=== PATIENT | male | born 1945 | race Caucasian/White ===

== ENCOUNTER 2021-01-25 00:47 | Observation (INO) | payer MEDICARE, OTHER ==
[~2021-01-25] VITALS: Ht 177.8 cm; Wt 82.0 kg
[2021-01-25 01:18] LABS: BASO % 1 % (0-3); EOS # 0.3 x10^3/uL (0.0-0.7); EOS % 5 % (0-3); HEMATOCRIT 48.2 % (39.0-53.0); HEMOGLOBIN 16.2 g/dL (13.0-17.5); LYMPH # 0.8 x10^3/uL (1.0-4.8); LYMPH % 14 % (24-48); MEAN CORPUSCULAR HEMOGLOBIN 31 pg (25-35); MEAN CORPUSCULAR HGB CONC 34 g/dL (31-37); MEAN CORPUSCULAR VOLUME 94 fL (79-100); MONO # 0.7 x10^3/uL (0.0-1.1); MONO % 11 % (0-9); NEUT % 69 % (31-73); PLATELET COUNT 139 x10^3/uL (140-400); RED BLOOD COUNT 5.14 x10^6/uL (4.30-5.70); RED CELL DISTRIBUTION WIDTH 14.1 % (11.5-14.5); WHITE BLOOD COUNT 5.8 x10^3/uL (4.0-11.0)
--- NOTE | 2021-01-25 01:18 | PHYS DOC ---
Past Medical History Past Medical History: CVA, High Cholesterol, Hypertension General Adult EDM: Chief Complaint: NEURO SYMPTOMS/DEFICITS HPI: HPI: Patient is a 75 year old male with history of HTN, HLD, recent stroke treated with TPA on 01/19 who presents with recurrent right upper extremity symptoms. On 01/19 was found to have a stroke with symptoms of slurred speech, right arm, right leg numbness and weakness. He received TPA. His symptoms improved vastly after receiving TPA. He was at his neurologic baseline at discharge. His medications were updated and he is now on aspirin and Plavix. Tonight at approximately midnight began having numbness on his right upper extremity, and a slight sensation of weakness in his right arm. There was no speech difficulty or facial droop today. He feels that his symptoms are improving since onset. Denies severe headache. No blood thinners. No known hx of afib/flutter Review of Systems: Review of Systems: Constitutional: Denies fever or chills. [] Eyes: Denies change in visual acuity. [] HENT: Denies nasal congestion or sore throat. [] Respiratory: Denies cough or shortness of breath. [] Cardiovascular: Denies chest pain or edema. [] GI: Denies abdominal pain, nausea, vomiting, bloody stools or diarrhea. [] : Denies dysuria. [] Musculoskeletal: Denies back pain or joint pain. [] Integument: Denies rash. [] Neurologic: Reports right upper extremity weakness and sensory change. Endocrine: Denies polyuria or polydipsia. [] Lymphatic: Denies swollen glands. [] Psychiatric: Denies depression or anxiety. [] Heart Score: C/O Chest Pain: No Current Medications: Current Medications Medications (Trade) Dose Ordered Sig/All Start Time Stop Time Status Last Admin Dose Admin Lorazepam (Ativan Inj) 0.5 mg 1X ONCE 01/25/21 01:15 01/25/21 01:16 UNV Allergies: Allergies: Allergies Coded Allergies Type Severity Reaction Last Updated Verified No Known Drug Allergies 01/25/21 No Physical Exam: PE: Constitutional: Well developed, well nourished, no acute distress, non-toxic appearance. [] HENT: Normocephalic, atraumatic, bilateral external ears normal, oropharynx moist, no oral exudates, nose normal. [] Eyes: PERRLA, EOMI, conjunctiva normal, no discharge. [] Neck: Normal range of motion, no tenderness, supple, no stridor. [] Cardiovascular:Heart rate regular rhythm, no murmur [] Lungs & Thorax: Bilateral breath sounds clear to auscultation [] Abdomen: Bowel sounds normal, soft, no tenderness, no masses, no pulsatile masses. [] Skin: Warm, dry, no erythema, no rash. [] Back: No tenderness, no CVA tenderness. [] Extremities: No tenderness, no cyanosis, no clubbing, ROM intact, no edema. [] Neurologic: Alert, keenly responsive Oriented to person, place, time. Knows month and age. EOMI. Visual ac intact. Face symmetric. Follow simple commands. Blinks eyes, closes hands and face. No upper or lower extremity drift. Slight sensation change in the right upper extremity when compared to the left, but consents being touched in all extremities. No ataxia. No dysarthria or aphasia. No extinction or neglect. NIH =1(sensory change) Psychologic: Affect normal, judgement normal, mood normal. [] Current Patient Data: Labs: Laboratory Tests Test 01/25/21 01:01 Glucose (Fingerstick) 98 mg/dL (70-99) EKG: EKG: Sinus rhythm. Rate 69. Computer reads as atrial flutter, but review of lead III shows obvious P waves without sawtooth pattern. [] Radiology/Procedures: Radiology/Procedures: [] Impression: [facility] [address] [place] [address] IMAGING REPORT Signed PATIENT: TOSHIA TORRES ACCOUNT: [id number] : 1945 LOCATION: ER AGE: 75 SEX: M EXAM STATUS: PRE ER ORD. PHYSICIAN: JOSHUA BOWLES MD REASON: right sided weakness PROCEDURE: CT CODE STROKE HEAD WO INDICATION: Reason: right sided weakness / Spl. Instructions: / History: COMPARISON: None. TECHNIQUE: Axial CT images obtained through the head without intravenous contrast. One or more of the following individualized dose reduction techniques were utilized for this examination: 1. Automated exposure control; 2. Adjustment of the mA and/or kV according to patient size; 3. Use of iterative reconstruction technique. FINDINGS: No intracranial hemorrhage. No significant midline shift. Ventricles and sulci are globally prominent. Scattered foci of low attenuation within the white matter. Calcific atherosclerosis. IMPRESSION: * No acute intracranial hemorrhage. * Scattered regions of low attenuation within the white matter. Non-specific in nature but a common finding and frequently secondary to small vessel ischemic disease. If there is concern for acute causes clinically MRI could better assess whether this is chronic or if there is an acute component. Report called to the ER at 1:20 AM on date of exam. Electronically signed by: Saray Fountain MD (01/25/2021 1:21 AM) [id number] DICTATED and SIGNED BY: SARAY FOUNTAIN MD DATE: 01/25/21 [id number] [facility] [address] [place] [address] IMAGING REPORT Signed PATIENT: TOSHIA TORRES ACCOUNT: [id number] : 1945 LOCATION: ER AGE: 75 SEX: M EXAM STATUS: REG ER ORD. PHYSICIAN: JOSHUA BOWLES MD REASON: right sided weakness;OMNI 300, 75ML PROCEDURE: CT ANGIOGRAPHY HEAD AND NECK INDICATION: Reason: right sided weakness;OMNI 300, 75ML / Spl. Instructions: / History: Recent stroke with similar symptoms. COMPARISON: CT head from same day TECHNIQUE: Axial CT images obtained through the head and neck arterial vasculature with intravenous contrast. 3D images were processed per protocol. Estimates of carotid stenosis based on criteria that correlates with NASCET. One or more of the following individualized dose reduction techniques were utilized for this examination: 1. Automated exposure control; 2. Adjustment of the mA and/or kV according to patient size; 3. Use of iterative reconstruction technique. FINDINGS: Head and Neck Angio: Right vertebral artery is small in caliber. Focus of plaque at the distal left vertebral artery with approximately 70 percent stenosis. Right vertebral artery tapers to a very small size distally. Multifocal plaque within. There is suspected multifocal regions of narrowing within the right vertebral artery. This includes at the origin where there is a focus of hard and soft plaque. Large focus of plaque at the right carotid bulb and proximal right internal carotid artery with approximately 70 percent stenosis at the right bulb region. There is some narrowing extending into the right internal carotid artery appears patent. Calcific atherosclerosis at bilateral carotid siphon. Multifocal plaque within the left internal carotid artery. Plaque at left carotid bulb less severe than on the right. There is some narrowing at the origin left external carotid artery by approximately 50 percent. Suspected high-grade approximately 80 percent stenosis just distal to the origin of the left posterior cerebral artery. Right A1 is hypoplastic. Bilateral vertebral arteries are patent. Bilateral common and internal carotid arteries are patent. Proximal external carotid arteries are patent. Basilar artery is patent. Bilateral proximal MCA, AIME and INTEGRATION DIRECTOR is patent. More peripheral vessels are not well evaluated on CT angiography secondary to sm all size. degenerative changes the spine with multilevel central canal and neural foraminal stenosis. There are some surgical clips at the right side of the neck. IMPRESSION: * Multifocal plaque and stenosis throughout the vertebral and carotid arteries without occlusion within the neck. * Multifocal plaque and stenosis throughout the cerebral arterial vasculature without occlusion of the proximal middle, anterior or posterior cerebral arteries proximally. The more peripheral vessels are not well evaluated secondary to small size as well as multifocal plaque and MRI could better assess for a more peripheral region of ischemia. This includes a suspected high-grade stenosis proximal left posterior cerebral artery. MRI could better assess whether there is any ischemic changes. Electronically signed by: Saray Fountain MD (01/25/2021 1:54 AM) [id number] DICTATED and SIGNED BY: SARAY FOUNTAIN MD DATE: 01/25/21 [id number] Course & Med Decision Making: Course & Med Decision Making Pertinent Labs and Imaging studies reviewed. (See chart for details) Patient is 75-year-old male with history of HTN, HLD, CVA on 01/19 treated with TPA at [facility] who presents with recurrent right upper extremity symptoms of weakness and numbness. On arrival his symptoms are improving, now with just slight sensory changes in the right upper extremity. NIH = 1. Will obtain CT/CTA, coags for stroke work up. Not TPA candidate given recent stroke. 0117 CT head WO shows no hemorrhage. CTA shows multifocal plaques and stenosis throughout with a focal stenosis in the L INTEGRATION DIRECTOR area. On re-evaluation patient states his symptoms are mostly improved. SBP has spontaneously come down from 190s to 160s. Discussed with Dr. Jean of neurology who recommends admission for observation and goal BP < 150/90. [id number] Rogers Disclaimer: Rogers Disclaimer: This electronic medical record was generated, in whole or in part, using a voice recognition dictation system. Departure Departure Impression: Primary Impression: Right arm weakness Disposition: ADMITTED INPATIENT Admitting Physician: THIEN Lau) Condition: IMPROVED JOSHUA BOWLES MD Jan 25, 2021 01:18
--- NOTE | 2021-01-25 01:24 | RAD ---
INDICATION: Reason: right sided weakness / Spl. Instructions: / History: COMPARISON: None. TECHNIQUE: Axial CT images obtained through the head without intravenous contrast. One or more of the following individualized dose reduction techniques were utilized for this examinat ion: 1. Automated exposure control; 2. Adjustment of the mA and/or kV according to patient size; 3 . Use of iterative reconstruction technique. FINDINGS: No intracranial hemorrhage. No significant midline shift. Ventricles and sulci are globally prominent. Scattered foci of low attenuation within the white matter. Calcific atherosclerosis. IMPRESSION: * No acute intracranial hemorrhage. * Scattered regions of low attenuation within the white matter. Non-specific in nature but a common finding and frequently secondary to small vessel ischemic disease. If there is concern for acute cau ses clinically MRI could better assess whether this is chronic or if there is an acute component. Rep ort called to the ER at 1:20 AM on date of exam. Electronically signed by: Brooks Borrego MD (01/25/2021 1:21 AM) [id number]
[2021-01-25 01:25] LABS: PROTHROMBIN TIME PATIENT 12.2 SEC (11.7-14.0)
[2021-01-25 01:28] LABS: CALCIUM 8.8 mg/dL (8.5-10.1); CREATININE 1.3 mg/dL (0.7-1.3); GFR 53.5; POTASSIUM 4.1 mmol/L (3.5-5.1)
[2021-01-25 01:34] LABS: ALBUMIN 3.7 g/dL (3.4-5.0); ALBUMIN/GLOBULIN RATIO 1.1 (1.0-1.7); TOTAL BILIRUBIN 0.7 mg/dL (0.2-1.0); TOTAL PROTEIN 7.2 g/dL (6.4-8.2)
[2021-01-25] MEDS ORDERED: CONTRAST GIVEN. MC PRN (01:45)
--- NOTE | 2021-01-25 01:57 | RAD ---
INDICATION: Reason: right sided weakness;OMNI 300, 75ML / Spl. Instructions: / History: Recent stro ke with similar symptoms. COMPARISON: CT head from same day TECHNIQUE: Axial CT images obtained through the head and neck arterial vasculature with intravenous contrast. 3 D images were processed per protocol. Estimates of carotid stenosis based on criteria that correlates with NASCET. One or more of the following individualized dose reduction techniques were utilized for this examinat ion: 1. Automated exposure control; 2. Adjustment of the mA and/or kV according to patient size; 3 . Use of iterative reconstruction technique. FINDINGS: Head and Neck Angio: Right vertebral artery is small in caliber. Focus of plaque at the distal left vertebral artery with approximately 70 percent stenosis. Right devante tebral artery tapers to a very small size distally. Multifocal plaque within. There is suspected mult ifocal regions of narrowing within the right vertebral artery. This includes at the origin where ther e is a focus of hard and soft plaque. Large focus of plaque at the right carotid bulb and proximal right internal carotid artery with appro ximately 70 percent stenosis at the right bulb region. There is some narrowing extending into the rig ht internal carotid artery appears patent. Calcific atherosclerosis at bilateral carotid siphon. Multifocal plaque within the left internal carr tid artery. Plaque at left carotid bulb less severe than on the right. There is some narrowing at the origin left external carotid artery by approximately 50 percent. Suspected high-grade approximately 80 percent stenosis just distal to the origin of the left posterior cerebral artery. Right A1 is hypoplastic. Bilateral vertebral arteries are patent. Bilateral common and internal carotid arteries are patent. Proximal external carotid arteries are patent. Basilar artery is patent. Bilateral proximal MCA, AIME and SPECIALTY SALES CONSULTANT is patent. More peripheral vessels are not well evaluated on CT angiography secondary to small size. degenerative changes the spine with multilevel central canal and neural foraminal stenosis. There are some surgical clips at the right side of the neck. IMPRESSION: * Multifocal plaque and stenosis throughout the vertebral and carotid arteries without occlusion wit hin the neck. * Multifocal plaque and stenosis throughout the cerebral arterial vasculature without occlusion of t he proximal middle, anterior or posterior cerebral arteries proximally. The more peripheral vessels a re not well evaluated secondary to small size as well as multifocal plaque and MRI could better asses s for a more peripheral region of ischemia. This includes a suspected high-grade stenosis proximal le ft posterior cerebral artery. MRI could better assess whether there is any ischemic changes. Electronically signed by: Brooks Borrego MD (01/25/2021 1:54 AM) [id number]
[2021-01-25] MEDS ORDERED: IOHEXOL 300 MG/ML 100ML VIAL. IV ONE (02:00)
[2021-01-25] MEDS ORDERED: hydrALAZINE 20 MG/ML VIAL. IVP ONE (02:30)
[2021-01-25] MEDS ORDERED: traZODone 50 MG TABLET. PO ONE (04:00)
--- NOTE | 2021-01-25 04:36 | EKG ---
[facility] [address] [place] [address] Test Date: 2021-01-25 Test Time: 00:57:37 Pat Name: TOSHIA TORRES Department: Room: ED HOLD 18 Gender: M Service Mechanic: : 1945 Requested By: JOSHUA BOWLES Order Number: [id number] Reading MD: Corey Ibarra Measurements Intervals [place] Rate: 69 P: WA: QRS: 9 QRSD: 82 T: 41 QT: 402 QTc: 432 Interpretive Statements SINUS RHYTHM Electronically Signed On 01-27-2021 12:54:53 SUPERVISOR UNLOADING by Corey Ibarra
[2021-01-25] MEDS ORDERED: hydrALAZINE 20 MG/ML VIAL. IVP PRN (07:00)
[2021-01-25] MEDS ORDERED: ACETAMINOPHEN 325 MG TABLET. PO PRN ×2 (07:00→09:30)
[2021-01-25] MEDS ORDERED: ONDANSETRON PF 4 MG/2 ML VIAL. IVP PRN ×2 (07:00→09:30)
[2021-01-25] MEDS ORDERED: ELECTROLYTE (NON-ICU) PROTOCOL. MC PRN (09:30)
[2021-01-25] MEDS ORDERED: CLOPIDOGREL BISULFATE 75 MG TABLET PO SCH (09:30)
[2021-01-25] MEDS ORDERED: ASPIRIN 325 MG TABLET PO SCH (09:30)
[2021-01-25] MEDS ORDERED: ZOLPIDEM 5 MG TABLET. PO PRN (09:30)
[2021-01-25] MEDS ORDERED: CALCIUM CARBONATE 500 MG TAB.CHEW PO PRN (09:30)
[2021-01-25] MEDS ORDERED: SENNOSIDES/DOCUSATE 8.6/50MG TABLET. PO SCH (10:00)
[2021-01-25] MEDS ORDERED: HEPARIN for SUB-Q USE 5,000 UNIT/ML VIAL. SQ SCH (10:00)
--- NOTE | 2021-01-25 10:06 | PDOC2 ---
NEUROLOGY CONSULT Date of Service DOS: DATE: 01/25/21 TIME: 09:56 Reason for Consult Reason for Consult: Stroke symptoms Referring Physician Referring Physician: Dr. Elmore Source Source: Caregiver (), Chart review, Patient History of Present Illness History of Present Illness The patient is a 75-year-old right-handed male who developed some right arm numbness and weakness with some symptoms in the leg as well at about 9 PM. He came to the emergency room her blood pressure was elevated. Symptoms have nearly resolved. He was at , admitted on 01/19. With his permission, I rev iewed the records. He came in with right sided weakness and then developed aphasia. Blood pressure was 240 systolic. He was put on a Cardene drip and given alteplase. CT angiogram showed no large vessel occlusion. MRI of the brain was negative. Symptoms resolved quickly, then. There is no other history of stroke. He does not know why his blood pressure would spike, he denies undue stress or noncompliance with his medications. He is on clopidogrel and statin. 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 Pauline Cardona [facility] 11/17/2020 AMB atenoloL (TENORMIN) 25 mg tablet Take one-half tablet by mouth at bedtime daily. Dominguez Hendricks MD 01/22/2021 AMB clopiDOGrel (PLAVIX) 75 mg tablet Take one tablet by mouth daily. Pauline Cardona [facility] 11/17/2020 AMB isosorbide mononitrate ER (IMDUR) 60 mg tablet Take one tablet by mouth every morning. Dominguez Hendricks MD -- AMB L.acid/L.casei/B.bif/B.reilly/FOS (PROBIOTIC BLEND PO) Take 1 tablet by mouth daily. HISTORICAL PROVIDER 11/16/2020 AMB losartan (COZAAR) 100 mg tablet Take one tablet by mouth at bedtime daily. Tony Lopez MD -- AMB MAGNESIUM MALATE (BULK) MISC Take 1 tablet by mouth twice daily. Magnesium SRT (Sustained release magnesium) 125mg of magnesium per tablet Provider, Historical -- AMB melatonin 1 mg tab Take 1 mg by mouth at bedtime daily. Provider, Historical 11/16/2020 AMB montelukast (SINGULAIR) 10 mg tablet Take one tablet by mouth at bedtime daily. Tony Lopez MD 11/09/[address] (PRILOSEC) 20 mg capsule TAKE 1 CAPSULE DAILY BEFOREBREAKFAST Tony Lopez MD 11/16/2020 AMB potassium chloride SR (KLOR-CON M20) 20 mEq tablet TAKE 2 TABLETS DAILY WITH AMEAL AND A FULL GLASS OF WATER Tony Lopez MD 12/30/2020 AMB rosuvastatin (CRESTOR) 20 mg tablet Take one tablet by mouth daily. Dominguez Hendricks MD 12/27/2017 AMB senna/docusate (SENOKOT-S) 8.6/50 mg tablet Take one tablet by mouth twice daily. (Patient taking differently: Take 1 tablet by mouth at bedtime daily.) Teresa Crow APRN-KI 09/17/2020 AMB sodium fluoride (PREVIDENT) 1.1 % gel Apply one g to teeth at bedtime daily. Delmer Onofre MD 05/17/2020 AMB SYNTHROID 88 mcg tablet TAKE 1 TABLET DAILY 30 MINUTES BEFORE BREAKFAST Jono Parra MD 11/17/2020 AMB tamsulosin (FLOMAX) 0.4 mg capsule Take one capsule by mouth daily. Take 30 min after same meal. Do not cut/ crush/ chew. Jah Hammond MD 11/16/2020 AMB traZODone (DESYREL) 50 mg tablet Take one tablet to two tablets by mouth at bedtime as needed for Sleep. Tony Lopez MD Current Medications Lorazepam (Ativan Inj) 2 mg STK-MED ONCE .ROUTE ; Start 01/25/21 at 01:03; Stop 01/25/21 at 01:03; Status DC Lorazepam (Ativan Inj) 0.5 mg 1X ONCE IVP Last administered on 01/25/21at 01:10; Start 01/25/21 at 01:15; Stop 01/25/21 at 01:26; Status DC Iohexol (Omnipaque 300 Mg/ml) 75 ml 1X ONCE IV Last administered on 01/25/21at 01:44; Start 01/25/21 at 02:00; Stop 01/25/21 at 02:01; Status DC Info (CONTRAST GIVEN -- Rx MONITORING) 1 each PRN DAILY PRN MC SEE COMMENTS; Start 01/25/21 at 01:45; Stop 01/27/21 at 01:44 Hydralazine HCl (Apresoline Inj) 10 mg 1X ONCE IVP ; Start 01/25/21 at 02:30; Stop 01/25/21 at 02:31; Status DC Trazodone HCl (Desyrel) 50 mg 1X ONCE PO Last administered on 01/25/21at 03:40; Start 01/25/21 at 04:00; Stop 01/25/21 at 04:01; Status DC Ondansetron HCl (Zofran) 4 mg PRN Q4HRS PRN IVP NAUSEA/VOMITING; Start 01/25/21 at 07:00 Acetaminophen (Tylenol) 650 mg PRN Q6HRS PRN PO MILD PAIN / TEMP > 100.3'F; Start 01/25/21 at 07:00 Hydralazine HCl (Apresoline Inj) 10 mg PRN Q4HRS PRN IVP ELEVATED BP, SEE C OMMENTS; Start 01/25/21 at 07:00 Aspirin (Kimberlee Aspirin) 81 mg DAILYWBKFT PO ; Start 01/25/21 at 09:30 Clopidogrel Bisulfate (Plavix) 75 mg DAILYWBKFT PO ; Start 01/25/21 at 09:30 Ondansetron HCl (Zofran) 4 mg PRN Q6HRS PRN IVP NAUSEA/VOMITING; Start 01/25/21 at 09:30 Calcium Carbonate/ Glycine (Tums) 500 mg PRN Q3HRS PRN PO UPSET STOMACH; Start 01/25/21 at 09:30 Zolpidem Tartrate (Ambien) 5 mg PRN QHS PRN PO INSOMNIA, MAY REPEAT IN 1HR; Start 01/25/21 at 09:30 Info (Non-Icu Electrolyte Protocol) 1 ea PRN DAILY PRN MC SEE COMMENTS; Start 01/25/21 at 09:30 Acetaminophen (Tylenol) 650 mg PRN Q6HRS PRN PO Headaches, Temp > 101.5F; Start 01/25/21 at 09:30 Senna/Docusate Sodium (Senna Plus) 1 tab BID PO ; Start 01/25/21 at 10:00 Heparin Sodium (Porcine) (Heparin Sodium) 5,000 unit Q8HRS SQ ; Start 01/25/21 at 10:00 Allergies Allergies: Coded Allergies: No Known Drug Allergies (Unverified , 01/25/21) ROS Review of System Negative for fever, chills, weight loss, shortness of breath, chest pain, indigestion, hematochezia, melena, and dysuria. Full 14-point review of systems is negative. Physical Exam Physical Examination General: Well-developed, well-nourished, white male, in no acute distress HEENT: Normocephalic andatraumatic.Temporal arteriespulsatile and nontender. Neck: Supple without bruit, no meningismus Musculoskeletal: Stability:see neurologic. Gait exam:see neurologic. Tone:see neurologic. Strength:see neurologic. Neurological: Mental Status:intact, orientation, memory, attention span/concentration, language, fund of knowledge normal. Cranial Nerves:Pupils equal and reactive to light, extraocular movements areintact, visual ac are full to confrontation. Facial sensation is normal. There is no facial asymmetry. Vestibulo-ocular reflex is intact. Palate elevates and tongue protrudes in midline. All other cranial related problems are negative except as mentioned before.Reflexes:2+ and symmetric with flexor plantar responses. Motor:5/5 strength with normal tone and bulk. Coordination:Finger-nose finger and he el-to-sepulveda testing are normal. Rapid alternating movements and fine finger movements are intact. Gait:Not tested. Sensory:Says that pinprick is maybe a little decreased on the right side, not consistently. Vitals VITALS Vital Signs Date Time Temp Pulse Resp B/P (MAP) Pulse Ox O2 Delivery O2 Flow Rate FiO2 01/25/21 06:00 54 20 153/70 (97) 96 Room Air 01/25/21 00:54 98.1 98.1 Labs Labs Laboratory Tests Test 01/25/21 00:55 01/25/21 01:01 White Blood Count 5.8 x10^3/uL (4.0-11.0) Red Blood Count 5.14 x10^6/uL (4.30-5.70) Hemoglobin 16.2 g/dL (13.0-17.5) Hematocrit 48.2 % (39.0-53.0) Mean Corpuscular Volume 94 fL (79-100) Mean Corpuscular Hemoglobin 31 pg (25-35) Mean Corpuscular Hemoglobin Concent 34 g/dL (31-37) Red Cell Distribution Width 14.1 % (11.5-14.5) Platelet Count 139 x10^3/uL (140-400) Neutrophils (%) (Auto) 69 % (31-73) Lymphocytes (%) (Auto) 14 % (24-48) Monocytes (%) (Auto) 11 % (0-9) Eosinophils (%) (Auto) 5 % (0-3) Basophils (%) (Auto) 1 % (0-3) Neutrophils # (Auto) 4.0 x10^3/uL (1.8-7.7) Lymphocytes # (Auto) 0.8 x10^3/uL (1.0-4.8) Monocytes # (Auto) 0.7 x10^3/uL (0.0-1.1) Eosinophils # (Auto) 0.3 x10^3/uL (0.0-0.7) Basophils # (Auto) 0.0 x10^3/uL (0.0-0.2) Prothrombin Time 12.2 SEC (11.7-14.0) Prothromb Time International Ratio 0.9 (0.8-1.1) Activated Partial Thromboplast Time 29 SEC (24-38) Sodium Level 135 mmol/L (136-145) Potassium Level 4.1 mmol/L (3.5-5.1) Chloride Level 100 mmol/L (98-107) Carbon Dioxide Level 27 mmol/L (21-32) Anion Gap 8 (6-14) Blood Urea Nitrogen 19 mg/dL (8-26) Creatinine 1.3 mg/dL (0.7-1.3) Estimated GFR (Cockcroft-Gault) 53.5 BUN/Creatinine Ratio 15 (6-20) Glucose Level 95 mg/dL (70-99) Calcium Level 8.8 mg/dL (8.5-10.1) Total Bilirubin 0.7 mg/dL (0.2-1.0) Aspartate Amino Transf (AST/SGOT) 44 U/L (15-37) Alanine Aminotransferase (ALT/SGPT) 44 U/L (16-63) Alkaline Phosphatase 128 U/L (46-116) Troponin I High Sensitivity 10 ng/L (4-75) Total Protein 7.2 g/dL (6.4-8.2) Albumin 3.7 g/dL (3.4-5.0) Albumin/Globulin Ratio 1.1 (1.0-1.7) Glucose (Fingerstick) 98 mg/dL (70-99) Laboratory Tests Test 01/25/21 00:55 01/25/21 01:01 White Blood Count 5.8 x10^3/uL (4.0-11.0) Red Blood Count 5.14 x10^6/uL (4.30-5.70) Hemoglobin 16.2 g/dL (13.0-17.5) Hematocrit 48.2 % (39.0-53.0) Mean Corpuscular Volume 94 fL (79-100) Mean Corpuscular Hemoglobin 31 pg (25-35) Mean Corpuscular Hemoglobin Concent 34 g/dL (31-37) Red Cell Distribution Width 14.1 % (11.5-14.5) Platelet Count 139 x10^3/uL (140-400) Neutrophils (%) (Auto) 69 % (31-73) Lymphocytes (%) (Auto) 14 % (24-48) Monocytes (%) (Auto) 11 % (0-9) Eosinophils (%) (Auto) 5 % (0-3) Basophils (%) (Auto) 1 % (0-3) Neutrophils # (Auto) 4.0 x10^3/uL (1.8-7.7) Lymphocytes # (Auto) 0.8 x10^3/uL (1.0-4.8) Monocytes # (Auto) 0.7 x10^3/uL (0.0-1.1) Eosinophils # (Auto) 0.3 x10^3/uL (0.0-0.7) Basophils # (Auto) 0.0 x10^3/uL (0.0-0.2) Prothrombin Time 12.2 SEC (11.7-14.0) Prothromb Time International Ratio 0.9 (0.8-1.1) Activated Partial Thromboplast Time 29 SEC (24-38) Sodium Level 135 mmol/L (136-145) Potassium Level 4.1 mmol/L (3.5-5.1) Chloride Level 100 mmol/L (98-107) Carbon Dioxide Level 27 mmol/L (21-32) Anion Gap 8 (6-14) Blood Urea Nitrogen 19 mg/dL (8-26) Creatinine 1.3 mg/dL (0.7-1.3) Estimated GFR (Cockcroft-Gault) 53.5 BUN/Creatinine Ratio 15 (6-20) Glucose Level 95 mg/dL (70-99) Calcium Level 8.8 mg/dL (8.5-10.1) Total Bilirubin 0.7 mg/dL (0.2-1.0) Aspartate Amino Transf (AST/SGOT) 44 U/L (15-37) Alanine Aminotransferase (ALT/SGPT) 44 U/L (16-63) Alkaline Phosphatase 128 U/L (46-116) Troponin I High Sensitivity 10 ng/L (4-75) Total Protein 7.2 g/dL (6.4-8.2) Albumin 3.7 g/dL (3.4-5.0) Albumin/Globulin Ratio 1.1 (1.0-1.7) Glucose (Fingerstick) 98 mg/dL (70-99) Images Images CT CODE STROKE HEAD WO INDICATION: Reason: right sided weakness / Spl. Instructions: / History: COMPARISON: None. TECHNIQUE: Axial CT images obtained through the head without intravenous contrast. One or more of the following individualized dose reduction techniques were utilized for this examination: 1. Automated exposure control; 2. Adjustment of the mA and/or kV according to patient size; 3. Use of iterative reconstruction technique. FINDINGS: No intracranial hemorrhage. No significant midline shift. Ventricles and sulci are globally prominent. Scattered foci of low attenuation within the white matter. Calcific atherosclerosis. IMPRESSION: * No acute intracranial hemorrhage. * Scattered regions of low attenuation within the white matter. Non-specific in nature but a common finding and frequently secondary to small vessel ischemic disease. If there is concern for acute causes clinically MRI could better assess whether this is chronic or if there is an acute component. CT ANGIOGRAPHY HEAD AND NECK INDICATION: Reason: right sided weakness;OMNI 300, 75ML / Spl. Instructions: / History: Recent stroke with similar symptoms. COMPARISON: CT head from same day TECHNIQUE: Axial CT images obtained through the head and neck arterial vasculature with intravenous contrast. 3D images were processed per protocol. Estimates of carotid stenosis based on criteria that correlates with NASCET. One or more of the following individualized dose reduction techniques were utilized for this examination: 1. Automated exposure control; 2. Adjustment of the mA and/or kV according to patient size; 3. Use of iterative reconstruction technique. FINDINGS: Head and Neck Angio: Right vertebral artery is small in caliber. Focus of plaque at the distal left vertebral artery with approximately 70 percent stenosis. Right vertebral artery tapers to a very small size distally. Multifocal plaque within. There is suspected multifocal regions of narrowing within the right vertebral artery. This includes at the origin where there is a focus of hard and soft plaque. Large focus of plaque at the right carotid bulb and proximal right internal carotid artery with approximately 70 percent stenosis at the right bulb region. There is some narrowing extending into the right internal carotid artery appears patent. Calcific atherosclerosis at bilateral carotid siphon. Multifocal plaque within the left internal carotid artery. Plaque at left carotid bulb less severe than on the right. There is some narrowing at the origin left external carotid artery by approximately 50 percent. Suspected high-grade approximately 80 percent stenosis just distal to the origin of the left posterior cerebral artery. Right A1 is hypoplastic. Bilateral vertebral arteries are patent. Bilateral common and internal carotid arteries are patent. Proximal external carotid arteries are patent. Basilar artery is patent. Bilateral proximal MCA, [employer] is patent. More peripheral vessels are not well evaluated on CT angiography secondary to small size. degenerative changes the spine with multilevel central canal and neural fo raminal stenosis. There are some surgical clips at the right side of the neck. IMPRESSION: * Multifocal plaque and stenosis throughout the vertebral and carotid arteries without occlusion within the neck. * Multifocal plaque and stenosis throughout the cerebral arterial vasculature without occlusion of the proximal middle, anterior or posterior cerebral arteries proximally. The more peripheral vessels are not well evaluated secondary to small size as well as multifocal plaque and MRI could better assess for a more peripheral region of ischemia. This includes a suspected high-grade stenosis proximal left posterior cerebral artery. MRI could better assess whether there is any ischemic changes. Assessment/Plan Assessment/Plan Impression: He has had 2 stroke-like episodes a week apart, both times associated with severe hypertension. He had a negative MRI at . They gave him alteplase. Multifocal plaque and stenosis throughout the vertebral and carotid arteries without occlusion within the neck, multifocal plaque and stenosis throughout the cerebral arterial vasculature without occlusion of the proximal middle, anterior or posterior cerebral arteries proximally. Recommendations: I discussed the case with Dr. Suggs last night and we did not feel the patient was a candidate for alteplase given the rapid improvement of symptoms. I see no need to repeat the work-up Watch him today and see how his blood pressure does, he needs to keep a close eye on his blood pressure Continue clopidogrel and statin (he is on rosuvastatin at home). Discharge as soon as late this afternoon depending on how he does. Fully discussed with the patient and his . Thank you for letting me help with the patient's care. SHAMIR HIRSCH MD Jan 25, 2021 10:06
[2021-01-25 11:00] VITALS: BP 165/98
--- NOTE | 2021-01-25 11:03 | PDOC1 ---
History and Physical Date of Service: DOS: DATE: 01/25/21 TIME: 11:03 Allergies: Allergies: Coded Allergies: No Known Drug Allergies (Unverified , 01/25/21) Current Medications: Current Medications Current Medications Lorazepam (Ativan Inj) 2 mg STK-MED ONCE .ROUTE ; Start 01/25/21 at 01:03; Stop 01/25/21 at 01:03; Status DC Lorazepam (Ativan Inj) 0.5 mg 1X ONCE IVP Last administered on 01/25/21at 01:10; Start 01/25/21 at 01:15; Stop 01/25/21 at 01:26; Status DC Iohexol (Omnipaque 300 Mg/ml) 75 ml 1X ONCE IV Last administered on 01/25/21at 01:44; Start 01/25/21 at 02:00; Stop 01/25/21 at 02:01; Status DC Info (CONTRAST GIVEN -- Rx MONITORING) 1 each PRN DAILY PRN MC SEE COMMENTS; Start 01/25/21 at 01:45; Stop 01/27/21 at 01:44 Hydralazine HCl (Apresoline Inj) 10 mg 1X ONCE IVP ; Start 01/25/21 at 02:30; Stop 01/25/21 at 02:31; Status DC Trazodone HCl (Desyrel) 50 mg 1X ONCE PO Last administered on 01/25/21at 03:40; Start 01/25/21 at 04:00; Stop 01/25/21 at 04:01; Status DC Ondansetron HCl (Zofran) 4 mg PRN Q4HRS PRN IVP NAUSEA/VOMITING; Start 01/25/21 at 07:00 Acetaminophen (Tylenol) 650 mg PRN Q6HRS PRN PO MILD PAIN / TEMP > 100.3'F; Start 01/25/21 at 07:00 Hydralazine HCl (Apresoline Inj) 10 mg PRN Q4HRS PRN IVP ELEVATED BP, SEE CO MMENTS; Start 01/25/21 at 07:00 Aspirin (Kimberlee Aspirin) 81 mg DAILYWBKFT PO ; Start 01/25/21 at 09:30 Clopidogrel Bisulfate (Plavix) 75 mg DAILYWBKFT PO ; Start 01/25/21 at 09:30 Ondansetron HCl (Zofran) 4 mg PRN Q6HRS PRN IVP NAUSEA/VOMITING; Start 01/25/21 at 09:30 Calcium Carbonate/ Glycine (Tums) 500 mg PRN Q3HRS PRN PO UPSET STOMACH; Start 01/25/21 at 09:30 Zolpidem Tartrate (Ambien) 5 mg PRN QHS PRN PO INSOMNIA, MAY REPEAT IN 1HR; Start 01/25/21 at 09:30 Info (Non-Icu Electrolyte Protocol) 1 ea PRN DAILY PRN MC SEE COMMENTS; Start 01/25/21 at 09:30 Acetaminophen (Tylenol) 650 mg PRN Q6HRS PRN PO Headaches, Temp > 101.5F; Start 01/25/21 at 09:30 Senna/Docusate Sodium (Senna Plus) 1 tab BID PO ; Start 01/25/21 at 10:00 Heparin Sodium (Porcine) (Heparin Sodium) 5,000 unit Q8HRS SQ ; Start 01/25/21 at 10:00 ROS: Review of Systems Review of System REVIEW OF SYSTEMS: GENERAL: Denies weakness SKIN: No bruising, hair changes or rashes. EYES: No blurred, double or loss of vision. NOSE AND THROAT: No history of nosebleeds, hoarseness or sore throat. HEART: No history of palpitations, chest pain or shortness of breath on exertion. LUNGS: Denies cough, hemoptysis, wheezing or shortness of breath. GASTROINTESTINAL: Denies changes in appetite, nausea, vomiting, diarrhea or constipation. GENITOURINARY: No history of frequency, urgency, hesitancy or nocturia. NEUROLOGIC: Denies history of numbness, tingling, or tremor. PSYCHIATRIC: No history of panic, anxiety or depression. ENDOCRINE: No history of heat or cold intolerance, polyuria or polydipsia. EXTREMITIES: Denies joint pain, pain on walking or stiffness. Physical Exam: Vital Signs: Vital Signs Date Time Temp Pulse Resp B/P (MAP) Pulse Ox O2 Delivery O2 Flow Rate FiO2 01/25/21 06:00 54 20 153/70 (97) 96 Room Air 01/25/21 00:54 98.1 98.1 Physcial Exam: GEN: No apparent distress. Alert and oriented HEENT: Normal cephalic, atraumatic, external auditory canals are patent EYES: Extraocular muscles are intact, pupil are equally round and reactive to light and accommodation MUSCULOSKELETAL: Well developed , well nourished, good range of motion ENDOCRINE: No thyromegaly was palpated LYMPHATICS: No cervical chain or axillary nodes were noted HEMATOPOIETIC: No bruising NECK: Supple, no JVD, no thyromegaly was noted LUNGS: Clear to auscultation in all lung ac without rhonchi or wheezing HEART: RRR, S!, S2 present. Peripheral pulses intact, no obvious murmurs noted ABDOMEN: Soft, nontender. Positive bowel sounds, no organomegaly, normal bowel sounds EXTREMITIES: Without clubbing, cyanosis, or edema. Pedal pulses intact. Negative Homans sign NEUROLOGIC: Normal speech and tone. A&O x 3, moves all extremities, no obvious focal deficits PSYCHIATRIC: Normal affect, normal mood. Stable SKIN: No ulcerations or rashes, good skin turgor, no jaundice VASCULAR: Good capillary refill, neurovascular bundle appears to be intact Labs: Labs: Laboratory Tests Test 01/25/21 00:55 01/25/21 01:01 White Blood Count 5.8 x10^3/uL (4.0-11.0) Red Blood Count 5.14 x10^6/uL (4.30-5.70) Hemoglobin 16.2 g/dL (13.0-17.5) Hematocrit 48.2 % (39.0-53.0) Mean Corpuscular Volume 94 fL (79-100) Mean Corpuscular Hemoglobin 31 pg (25-35) Mean Corpuscular Hemoglobin Concent 34 g/dL (31-37) Red Cell Distribution Width 14.1 % (11.5-14.5) Platelet Count 139 x10^3/uL (140-400) Neutrophils (%) (Auto) 69 % (31-73) Lymphocytes (%) (Auto) 14 % (24-48) Monocytes (%) (Auto) 11 % (0-9) Eosinophils (%) (Auto) 5 % (0-3) Basophils (%) (Auto) 1 % (0-3) Neutrophils # (Auto) 4.0 x10^3/uL (1.8-7.7) Lymphocytes # (Auto) 0.8 x10^3/uL (1.0-4.8) Monocytes # (Auto) 0.7 x10^3/uL (0.0-1.1) Eosinophils # (Auto) 0.3 x10^3/uL (0.0-0.7) Basophils # (Auto) 0.0 x10^3/uL (0.0-0.2) Prothrombin Time 12.2 SEC (11.7-14.0) Prothromb Time International Ratio 0.9 (0.8-1.1) Activated Partial Thromboplast Time 29 SEC (24-38) Sodium Level 135 mmol/L (136-145) Potassium Level 4.1 mmol/L (3.5-5.1) Chloride Level 100 mmol/L (98-107) Carbon Dioxide Level 27 mmol/L (21-32) Anion Gap 8 (6-14) Blood Urea Nitrogen 19 mg/dL (8-26) Creatinine 1.3 mg/dL (0.7-1.3) Estimated GFR (Cockcroft-Gault) 53.5 BUN/Creatinine Ratio 15 (6-20) Glucose Level 95 mg/dL (70-99) Calcium Level 8.8 mg/dL (8.5-10.1) Total Bilirubin 0.7 mg/dL (0.2-1.0) Aspartate Amino Transf (AST/SGOT) 44 U/L (15-37) Alanine Aminotransferase (ALT/SGPT) 44 U/L (16-63) Alkaline Phosphatase 128 U/L (46-116) Troponin I High Sensitivity 10 ng/L (4-75) Total Protein 7.2 g/dL (6.4-8.2) Albumin 3.7 g/dL (3.4-5.0) Albumin/Globulin Ratio 1.1 (1.0-1.7) Glucose (Fingerstick) 98 mg/dL (70-99) Laboratory Tests Test 01/25/21 00:55 01/25/21 01:01 White Blood Count 5.8 x10^3/uL (4.0-11.0) Red Blood Count 5.14 x10^6/uL (4.30-5.70) Hemoglobin 16.2 g/dL (13.0-17.5) Hematocrit 48.2 % (39.0-53.0) Mean Corpuscular Volume 94 fL (79-100) Mean Corpuscular Hemoglobin 31 pg (25-35) Mean Corpuscular Hemoglobin Concent 34 g/dL (31-37) Red Cell Distribution Width 14.1 % (11.5-14.5) Platelet Count 139 x10^3/uL (140-400) Neutrophils (%) (Auto) 69 % (31-73) Lymphocytes (%) (Auto) 14 % (24-48) Monocytes (%) (Auto) 11 % (0-9) Eosinophils (%) (Auto) 5 % (0-3) Basophils (%) (Auto) 1 % (0-3) Neutrophils # (Auto) 4.0 x10^3/uL (1.8-7.7) Lymphocytes # (Auto) 0.8 x10^3/uL (1.0-4.8) Monocytes # (Auto) 0.7 x10^3/uL (0.0-1.1) Eosinophils # (Auto) 0.3 x10^3/uL (0.0-0.7) Basophils # (Auto) 0.0 x10^3/uL (0.0-0.2) Prothrombin Time 12.2 SEC (11.7-14.0) Prothromb Time International Ratio 0.9 (0.8-1.1) Activated Partial Thromboplast Time 29 SEC (24-38) Sodium Level 135 mmol/L (136-145) Potassium Level 4.1 mmol/L (3.5-5.1) Chloride Level 100 mmol/L (98-107) Carbon Dioxide Level 27 mmol/L (21-32) Anion Gap 8 (6-14) Blood Urea Nitrogen 19 mg/dL (8-26) Creatinine 1.3 mg/dL (0.7-1.3) Estimated GFR (Cockcroft-Gault) 53.5 BUN/Creatinine Ratio 15 (6-20) Glucose Level 95 mg/dL (70-99) Calcium Level 8.8 mg/dL (8.5-10.1) Total Bilirubin 0.7 mg/dL (0.2-1.0) Aspartate Amino Transf (AST/SGOT) 44 U/L (15-37) Alanine Aminotransferase (ALT/SGPT) 44 U/L (16-63) Alkaline Phosphatase 128 U/L (46-116) Troponin I High Sensitivity 10 ng/L (4-75) Total Protein 7.2 g/dL (6.4-8.2) Albumin 3.7 g/dL (3.4-5.0) Albumin/Globulin Ratio 1.1 (1.0-1.7) Glucose (Fingerstick) 98 mg/dL (70-99) Justifications for Admission Other Justification MISSY NINO MD Jan 25, 2021 11:03
[2021-01-25] MEDS ORDERED: LACT1CAP37 PO (12:11)
[2021-01-25] MEDS ORDERED: POTA-121 PO (12:11)
[2021-01-25] MEDS ORDERED: CRESTOR40 MG PO (12:11)
[2021-01-25] MEDS ORDERED: OMEP20CA16 PO (12:11)
[2021-01-25] MEDS ORDERED: CLOP75TA PO (12:11)
[2021-01-25] MEDS ORDERED: MELA1TAB10 PO (12:11)
[2021-01-25] MEDS ORDERED: ATEN25TA PO (12:11)
[2021-01-25] MEDS ORDERED: LEVO88TA70 PO (12:11)
[2021-01-25] MEDS ORDERED: AMLO-187 PO (12:11)
[2021-01-25] MEDS ORDERED: TAMS0.4C97 PO (12:11)
[2021-01-25] MEDS ORDERED: SENN8.6T11 PO (12:11)
[2021-01-25] MEDS ORDERED: TRAZ-118 PO (12:11)
[2021-01-25] MEDS ORDERED: MONT10TA49 PO (12:11)
[2021-01-25] MEDS ORDERED: ISOS60TA55 PO (12:11)
[2021-01-25] MEDS ORDERED: LOSA100T14 PO (12:11)
[2021-01-25 12:59] VITALS: BP 165/98
[2021-01-25] MEDS ORDERED: ISOSORBIDE MONONITRATE ER 30 MG TAB.ER.24H PO SCH (13:00)
[2021-01-25] MEDS ORDERED: TAMSULOSIN 0.4 MG CAP.ER.24H. PO SCH (13:00)
[2021-01-25] MEDS ORDERED: POTASSIUM CHLORIDE 20 MEQ TABLET.ER. PO SCH (13:00)
--- NOTE | 2021-01-25 14:04 | NUR ---
DISCHARGED PATIENT TO HOME. DISCHARGE INSTRUCTIONS GIVEN TO FAMILY AND PATIENT AND VERBALIZED UNDERSTANDING. PIV AND EKG LEADS REMOVED. ESCORTED PATIENT OFF UNIT PER WHEELCHAIR INTO A PRIVATE VEHICLE.
[2021-01-25] MEDS ORDERED: ATENOLOL 25 MG TABLET. PO SCH (21:00)
[2021-01-25] MEDS ORDERED: LOSARTAN POTASSIUM 50 MG TABLET. PO SCH (21:00)
[2021-01-26] MEDS ORDERED: LEVOTHYROXINE 88 MCG TABLET PO SCH (06:00)
== END 2021-01-25 14:07 | disposition home or self-care (01) ==
LOC: ER 00:47 → ED HOLD 02:18
PROVIDERS: ADMIT Internal Medicine; ATTEND Internal Medicine
DX: M62.81 Muscle weakness (generalized) (principal); R47.81 Slurred speech; I12.9 Hypertensive chronic kidney disease with stage 1 through stage 4 chronic kidney disease, or unspecified chronic kidney disease; N18.30 Chronic kidney disease, stage 3 unspecified; I25.10 Atherosclerotic heart disease of native coronary artery without angina pectoris; I63.9 Cerebral infarction, unspecified; H91.90 Unspecified hearing loss, unspecified ear; E03.9 Hypothyroidism, unspecified; E78.00 Pure hypercholesterolemia, unspecified; E78.5 Hyperlipidemia, unspecified; R47.01 Aphasia; Z79.02 Long term (current) use of antithrombotics/antiplatelets; Z85.810 Personal history of malignant neoplasm of tongue; Z86.73 Personal history of transient ischemic attack (TIA), and cerebral infarction without residual deficits; Z87.442 Personal history of urinary calculi; Z92.21 Personal history of antineoplastic chemotherapy; Z92.3 Personal history of irradiation
CPT/HCPCS: 36415; 70450; 70496; 70498; 80053; 82962; 84484; 85025; 85610; 85730; 93005; 96372; 96374; 99285; G0378; J1644; J2060; Q9967; G0379